=== PATIENT | female | born 1980 | race Caucasian/White ===

== ENCOUNTER 2017-12-02 01:49 | Emergency (ER) | payer MEDICARE, OTHER ==
[2017-12-02] MEDS ORDERED: SODIUM CHLORIDE 0.9% 1000ML 1,000 ML IV ONE (01:58)
[2017-12-02] MEDS ORDERED: DIPHENHYDRAMINE 50 MG/ML SOL IV ONE (01:58)
[2017-12-02] MEDS ORDERED: KETOROLAC TROMETHAMINE 30 MG/ML SOL IV ONE (01:58)
[2017-12-02] MEDS ORDERED: KETOROLAC TROMETHAMINE 30 MG/ML SOL ONE (01:59)
[2017-12-02] MEDS ORDERED: DIPHENHYDRAMINE 50 MG/ML SOL ONE (01:59)
[2017-12-02 02:14] VITALS: RESP 18; TEMP 97.7; O2SAT 100
[2017-12-02] MEDS ORDERED: SODIUM CHLORIDE 0.9% FLUSH 10 ML SOL IV PRN (02:14)
[2017-12-02 03:34] VITALS: BP 118/77; PULSE 76
== END 2017-12-02 03:35 | disposition home or self-care (01) | DRG 103 ==
LOC: ED 01:49
DX: G43.001 Migraine without aura, not intractable, with status migrainosus (principal)
CPT/HCPCS: 96365; 96374; 96375; 99282; 99284; J1200; J1885